=== PATIENT | male | born 1950 | race Caucasian/White ===

== ENCOUNTER 2018-09-15 16:26 | Emergency (ER) | payer MEDICAID ==
[~2018-09-15] VITALS: Ht 167.6 cm; Wt 72.7 kg
[2018-09-15] MEDS ORDERED: MAGOX PO (18:19)
[2018-09-15] MEDS ORDERED: ZOLP10TA7 PO (18:22)
[2018-09-15] MEDS ORDERED: LISI-662 PO (18:22)
[2018-09-15] MEDS ORDERED: ASPI81 PO (18:23)
[2018-09-15] MEDS ORDERED: FLUORESCEIN SODIUM 1 MG STRIP OU ONE (18:45)
[2018-09-15 19:13] VITALS: BP 141/77
== END 2018-09-15 19:42 | disposition home or self-care (01) ==
LOC: EMS 16:28
DX: H10.10 Acute atopic conjunctivitis, unspecified eye (principal); E78.00 Pure hypercholesterolemia, unspecified; I10 Essential (primary) hypertension; Z79.82 Long term (current) use of aspirin; Z79.899 Other long term (current) drug therapy

== ENCOUNTER 2018-12-09 19:48 | Emergency (ER) | payer MEDICARE, MEDICAID ==
[~2018-12-09] VITALS: Ht 160 cm; Wt 76.3 kg
[~2018-12-09 19:48] MED LIST: ASPI81 PO; LISI-662 PO; MAGOX PO; ZOLP10TA7 PO
[2018-12-09] MEDS ORDERED: AMLO-511 PO (20:07)
[2018-12-09] MEDS ORDERED: FAMO20 PO (20:07)
[2018-12-09] MEDS ORDERED: LISI-661 PO (20:07)
[2018-12-09 20:25] LABS: BASOPHILS % (AUTO) 0.3 % (0.0-2.0); EOSINOPHILS % (AUTO) 0.5 % (1.0-6.0); HEMATOCRIT 23.5 % (41-53); LYMPHOCYTES # (AUTO) 2.4 K/uL (1.0-4.8); LYMPHOCYTES % (AUTO) 29.8 % (22.0-44.0); MEAN CORPUSCULAR HEMOGLOBIN 31.6 pg (26.0-34.0); MEAN CORPUSCULAR HGB CONC 34.1 G/dL (31.0-37.0); MEAN CORPUSCULAR VOLUME 93 fL (80-100); MONOCYTES # (AUTO) 1.2 K/uL (0.1-1.0); MONOCYTES % (AUTO) 14.4 % (2.0-9.0); NEUTROPHILS # (AUTO) 4.5 K/uL (1.8-7.7); PLATELET COUNT (AUTO) 178 K/uL (150-450); RED BLOOD CELL COUNT(AUTO) 2.53 MIL/uL (4.50-5.90); RED CELL DISTRIBUTION WIDTH 19.9 % (11.5-14.5)
[2018-12-09 20:38] LABS: CALCIUM, TOTAL 9.2 mg/dL (8.8-10.5); CREATININE 1.68 mg/dL (0.60-1.30); POTASSIUM 4.4 mmol/L (3.5-5.1)
[2018-12-09 20:44] LABS: ALBUMIN 2.9 g/dL (3.4-5.0); BILIRUBIN,TOTAL 0.3 mg/dL (0.1-1.0); TOTAL PROTEIN, SERUM 11.3 g/dL (6.4-8.2)
[2018-12-09] MEDS ORDERED: PB/HYOSCY/ATR/SCOP/LIDO/MAALOX 55 ML BOTTLE PO ONE (22:30)
[2018-12-09 23:30] VITALS: BP 128/76
== END 2018-12-09 23:56 | disposition home or self-care (01) ==
LOC: EMS 19:50
DX: K29.70 Gastritis, unspecified, without bleeding (principal); D64.9 Anemia, unspecified; F41.9 Anxiety disorder, unspecified; K21.9 Gastro-esophageal reflux disease without esophagitis; I10 Essential (primary) hypertension; E78.00 Pure hypercholesterolemia, unspecified; Z79.899 Other long term (current) drug therapy
CPT/HCPCS: 93005